=== PATIENT | female | born 1970 | race Caucasian/White ===

== ENCOUNTER 2016-08-08 14:52 | Emergency (ER) | payer OTHER ==
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
[~2016-08-08 14:52] MED LIST: FLUVOXAMINE MA100 MG PO; OLANZAPINE10 MG PO; PANTOPRAZOLE SO40 MG PO; VENLAFAXINE HC225 MG PO; VYVANSE70 MG PO
== END 2016-08-08 15:10 | disposition home or self-care (01) ==
LOC: CED 14:52
DX: S13.4XXA Sprain of ligaments of cervical spine, initial encounter (principal); S23.3XXA Sprain of ligaments of thoracic spine, initial encounter; S33.5XXA Sprain of ligaments of lumbar spine, initial encounter; K21.9 Gastro-esophageal reflux disease without esophagitis; F90.9 Attention-deficit hyperactivity disorder, unspecified type; F32.9 Major depressive disorder, single episode, unspecified; V49.40XA Driver injured in collision with unspecified motor vehicles in traffic accident, initial encounter
CPT/HCPCS: 72040; 72072; 72100; 73562; 99284